=== PATIENT | female | born 1980 | race Two or more races ===

== ENCOUNTER 2017-11-28 13:49 | Outpatient (CLI) | payer OTHER | END 2017-11-28 16:40 | disposition home or self-care (01) | LOC: OBT 13:49 → L-D 14:05 → OBT 16:40 | DX: O41.93X0 Disorder of amniotic fluid and membranes, unspecified, third trimester, not applicable or unspecified (principal); Z3A.29 29 weeks gestation of pregnancy | CPT/HCPCS: 76818 ==

== ENCOUNTER 2017-12-30 06:05 | Inpatient (IN) | payer OTHER ==
[2017-12-30 07:27] LABS: RUPTURE FETAL MEMBRANES POSITIVE (NEGATIVE)
[2017-12-30] MEDS ORDERED: MISOPROSTOL 200 MCG TAB PR (08:00)
[2017-12-30] MEDS ORDERED: CARBOPROST 250 MCG INJ IM (08:00)
[2017-12-30] MEDS ORDERED: IBUPROFEN 600 MG TAB PO (08:00)
[2017-12-30] MEDS ORDERED: BUTORPHANOL 2 MG INJ IV (08:00)
[2017-12-30] MEDS ORDERED: OXYTOCIN 30 UNITS/LR 500 ML IV ×2 (08:00)
[2017-12-30] MEDS ORDERED: METHYLERGONOVINE 0.2 MG INJ IM (08:00)
[2017-12-30] MEDS ORDERED: LIDOCAINE 1% (MPF) 30 ML INJ INJ (08:00)
[2017-12-30] MEDS: LACTATED RINGER'S 1,000 ML IV* (08:02)
[2017-12-30] MEDS: AMPICILLIN 2 GM/NS (PMX) 100 ML IV (08:14)
[2017-12-30 08:23] LABS: ADD MAN DIFF? NO
[2017-12-30 08:26] LABS: WHITE BLOOD COUNT 8.3 10^3/ul (4.8-10.8)
[2017-12-30 08:26] LABS: ABNORMAL IP MESSAGE 1; BASOPHILS % 0.2 % (0.0-2.0); EOSINOPHILS # 0.1 10^3/ul (0.0-0.5); EOSINOPHILS % 0.8 % (0.0-7.0); HEMATOCRIT 33.8 % (37.0-47.0); HEMOGLOBIN 11.1 g/dl (12.0-16.0); LYMPHOCYTES # 1.3 10^3/ul (0.8-2.9); MEAN CORPUSCULAR HEMOGLOBIN 26.4 pg (29.0-33.0); MEAN CORPUSCULAR HGB CONC 32.8 g/dl (32.0-37.0); MEAN CORPUSCULAR VOLUME 80.3 fl (82.0-101.0); MEAN PLATELET VOLUME 13.3 fl (7.4-10.4); MONOCYTE # 0.4 10^3/ul (0.3-0.9); MONOCYTES % 5.3 % (0.0-11.0); NEUTROPHIL # 6.4 10^3/ul (1.6-7.5); NEUTROPHILS % 77.5 % (39.0-77.0); PLATELET COUNT 140 10^3/UL (140-415); RED BLOOD COUNT 4.21 10^6/ul (4.20-5.40); RED CELL DISTRIBUTION WIDTH 14.6 % (11.5-14.5)
[2017-12-30 08:33] LABS: POSITIVE DIFF @See below
[2017-12-30 08:52] LABS: GLUCOSE 90 mg/dl (70-220)
[2017-12-30 08:56] LABS: INR 0.93; PARTIAL THROMBOPLASTIN TIME 28.5 Sec (25.0-35.0); PROTIME 12.5 Sec (11.9-14.9)
[2017-12-30 09:23] LABS: HEPATITIS B SURFACE ANTIGEN NEGATIVE (NEGATIVE)
[2017-12-30] MEDS: OXYTOCIN 30 UNITS/LR 500 ML IV ×3 (11:22→22:29)
[2017-12-30] MEDS: AMPICILLIN 1 GM/NS (PMX) 50 ML IV ×2 (12:00→15:55)
[2017-12-30 15:02] LABS: RAPID PLASMA REAGIN NONREACTIVE (NR)
[2017-12-30] MEDS: LACTATED RINGER'S 1,000 ML IV ×2 (16:11→17:07)
[2017-12-30] MEDS ORDERED: FENTAnyl 2MCG/ML-ROPIV 0.2% 100 ML (16:16)
[2017-12-30] MEDS ORDERED: FENTAnyl 2MCG/ML-ROPIV 0.2% 100 ML BAG EPI (17:30)
[2017-12-30] MEDS ORDERED: NALOXONE (0.4 MG/ML) INJ IV (17:30)
[2017-12-30] MEDS ORDERED: OXYCODONE/ASPIRIN (4.88/325) TAB PO ×2 (22:30)
[2017-12-30] MEDS ORDERED: ACETAMINOPHEN 325 MG TAB PO (22:30)
[2017-12-30] MEDS ORDERED: HYDROCODONE/APAP (5/325) TAB PO ×2 (22:30)
[2017-12-30] MEDS ORDERED: ONDANSETRON 4 MG INJ IV (22:30)
[2017-12-30] MEDS ORDERED: DIBUCAINE 1% 30 GM OINT PR (22:30)
[2017-12-30] MEDS: IBUPROFEN 600 MG TAB PO (23:40)
[2017-12-30] MEDS: WITCH HAZEL/GLYCERIN PAD PR (23:40)
[2017-12-30] MEDS: LANOLIN 7 GM TUBE TOP (23:40)
[2017-12-30] MEDS: BENZOCAINE 20% 56 ML SPRAY TOP (23:41)
[2017-12-31] MEDS: IBUPROFEN 600 MG TAB PO ×4 (05:26→23:34)
[2017-12-31 07:17] LABS: ADD MAN DIFF? NO
[2017-12-31 07:20] LABS: WHITE BLOOD COUNT 12.3 10^3/ul (4.8-10.8)
[2017-12-31 07:20] LABS: ABNORMAL IP MESSAGE 1; BASOPHILS % 0.2 % (0.0-2.0); EOSINOPHILS # 0.1 10^3/ul (0.0-0.5); EOSINOPHILS % 0.6 % (0.0-7.0); HEMOGLOBIN 9.9 g/dl (12.0-16.0); LYMPHOCYTES # 1.7 10^3/ul (0.8-2.9); LYMPHOCYTES % 13.6 % (15.0-51.0); MEAN CORPUSCULAR HEMOGLOBIN 26.2 pg (29.0-33.0); MEAN CORPUSCULAR VOLUME 79.4 fl (82.0-101.0); MEAN PLATELET VOLUME 13.8 fl (7.4-10.4); MONOCYTE # 0.6 10^3/ul (0.3-0.9); MONOCYTES % 4.6 % (0.0-11.0); NEUTROPHIL # 9.9 10^3/ul (1.6-7.5); NEUTROPHILS % 80.7 % (39.0-77.0); PLATELET COUNT 137 10^3/UL (140-415); RED BLOOD COUNT 3.78 10^6/ul (4.20-5.40); RED CELL DISTRIBUTION WIDTH 14.8 % (11.5-14.5)
[2017-12-31 07:32] LABS: POSITIVE DIFF @See below
[2017-12-31] MEDS: SENNA/DOCUSATE NA (8.6MG/50MG) TAB PO ×2 (09:21→21:39)
[2018-01-01] MEDS: IBUPROFEN 600 MG TAB PO ×3 (05:49→17:29)
[2018-01-01] MEDS: MEASLES,MUMPS,RUBELLA VACCINE INJ SC* (09:00)
[2018-01-01] MEDS: SENNA/DOCUSATE NA (8.6MG/50MG) TAB PO (09:00)
== END 2018-01-01 18:00 | disposition home or self-care (01) | DRG 775 ==
LOC: OBT 06:05 → L-D 06:05 → OBT 07:45 → L-D 07:45 → PP1 22:28
PROVIDERS: Obstetrics & Gynecology
PROC: 10E0XZZ Delivery of Products of Conception, External Approach (ICD-10-PCS; principal; 2017-12-30)
PROC: 0HQ9XZZ Repair Perineum Skin, External Approach (ICD-10-PCS; 2017-12-30)
DX: O42.913 Preterm premature rupture of membranes, unspecified as to length of time between rupture and onset of labor, third trimester (principal); Z3A.35 35 weeks gestation of pregnancy; Z37.0 Single live birth; O70.0 First degree perineal laceration during delivery
CPT/HCPCS: 62319; 76815; 76856; 82947; 82962; 84112; 85025; 85610; 85730; 86592; 86850; 86900; 86901; 87340; 99464